=== PATIENT | female | born 1950 | race Caucasian/White ===

== ENCOUNTER 2016-11-15 15:43 | Emergency (ER) | payer OTHER, MEDICARE ==
[2016-11-15 16:00] VITALS: BP 126/103; PULSE 112; TEMP 98.6; BMI 36.0
[2016-11-15] MEDS ORDERED: IBUPROFEN 600 MG TABLET (FP) PO ONE ×2 (16:19→16:25)
--- NOTE | 2016-11-15 16:43 | PDOC ---
History of Present Illness - General Chief Complaint: Injury Stated Complaint: FALL Time Seen by Provider: 11/15/16 16:00 History Source: Patient Exam Limitations: No Limitations - History of Present Illness Initial Comments: 11/15/16 16:38 65 yr female states she stepped off on uneven concrete in a store and fell injured right elbow and left hip. abrasion to the left forearm. no LOC no head trauma. Pt is ambulatory. Occurred: reports: just prior to arrival Past History - Past Medical History Allergies/Adverse Reactions: Allergies Allergy/AdvReac Type Severity Reaction Status Date / Time Penicillins Allergy Intermediate Swelling Verified 11/15/16 15:55 Home Medications: Ambulatory Orders Bupropion HCl [Wellbutrin -] 75 mg PO DAILY 11/15/16 Lorazepam [Ativan] 1 mg PO ASDIR 11/15/16 Zolpidem Tartrate [Ambien] 5 mg PO HS 11/15/16 Psychiatric Problems: Yes (depression, anxiety) - Psycho/Social/Smoking Cessation Hx Suicidal Ideation: No Smoking History: Former smoker Have you smoked in the past 12 months: No Information on smoking cessation initiated: No Trauma Specific PMHX - Complaint Specific PMHX Arthritis: No Back Injury: No Neck Injury: No Hx Sacro Iliac Joint Dysfunction: No Review of Systems - Review of Systems Able to Perform ROS?: Yes Is the patient limited Bahamian proficient: No Constitutional: No: Symptoms Reported HEENTM: No: Symptoms Reported Respiratory: No: Symptoms reported Cardiac (ROS): No: Symptoms Reported ABD/GI: No: Symptoms Reported : No: Symptoms Reported Musculoskeletal: Yes: Symptoms Reported, See HPI Integumentary: Yes: Symptoms Reported, Other (abrasion left forearm ) *Physical Exam - Vital Signs Last Vital Signs Temp Pulse Resp BP Pulse Ox 98.6 F 112 H 17 126/103 95 11/15/16 15:55 11/15/16 15:55 11/15/16 15:55 11/15/16 15:55 11/15/16 15:55 - Physical Exam General Appearance: Yes: Nourished, Appropriately Dressed HEENT: positive: EOMI, LILLY, Normal ENT Inspection, TMs Normal, Pharynx Normal Neck: positive: Supple. negative: Tender Respiratory/Chest: positive: Lungs Clear, Normal Breath Sounds Cardiovascular: positive: Regular Rhythm, Regular Rate Gastrointestinal/Abdominal: positive: Normal Bowel Sounds, Soft Musculoskeletal: positive: Normal Inspection Extremity: positive: Normal Capillary Refill, Tender (right elbow no bony tenderness, FROM pain with extension, left hip no tenderness, FROM nv intact, pt has pain to the left hip with flexion of the hip, ) Integumentary: positive: Normal Color, Dry, Warm, Other (abrasion left forearm ) Neurologic: positive: Fully Oriented, Alert, Normal Mood/Affect, Normal Response , Motor Strength 08/30 ED Treatment Course - RADIOLOGY Radiology Studies Ordered: Category Date Time Status ELBOW-RIGHT [RAD] Stat Radiology 11/15/16 16:19 Ordered HIP-LEFT [RAD] Stat Radiology 11/15/16 16:19 Ordered - Medications Given in the ED: ED Medications Discontinued Medications Generic Name Dose Route Start Last Admin Trade Name Compa PRN Reason Stop Dose Admin Ibuprofen 600 mg 11/15/16 16:19 11/15/16 16:26 Motrin - PO 11/15/16 16:20 600 mg ONCE ONE Administration Medical Decision Making - Medical Decision Making 11/15/16 16:43 cc: trip and fall on uneven floor and fell injured right elbow and left hip pt is ambulatory no acute distress will xray to r/o fracture abrasion to be cleaned tetanus is UTD 11/15/16 16:53 preliminary reading is negative of the xrays, I have discussed that the radiologist will read the xray in 24hrs and we will notify her if any changes. pt understands and is agreance to use the sling as directed. 11/15/16 22:13 *DC/Admit/Observation/Transfer Diagnosis at time of Disposition: Contusion Qualifiers: Encounter type: initial encounter Contusion area: elbow Laterality: right Qualified Code(s): S50.01XA - Contusion of right elbow, initial encounter Abrasion forearm Qualifiers: Encounter type: initial encounter Laterality: left Qualified Code(s): S50.812A - Abrasion of left forearm, initial encounter - Discharge Dispostion Disposition: HOME Condition at time of disposition: Good - Referrals Referrals: Rinku Abdullahi MD [Primary Care Provider] - Ramon Alcaraz MD [Staff Physician] - - Patient Instructions Additional Instructions: apply ice every 2hrs for 20 minutes to areas of pain take motrin 600-800mg every 6hrs for pain follow with your doctor if any worsening pain - Post Discharge Activity
[2016-11-15] MEDS ORDERED: BACITRACIN 15 GM TUBE TOPICAL OINTMENT TP ONE (16:53)
== END 2016-11-15 17:34 | disposition home or self-care (01) ==
LOC: JERFT 15:43
DX: S50.01XA Contusion of right elbow, initial encounter (principal); S50.812A Abrasion of left forearm, initial encounter; Z87.891 Personal history of nicotine dependence; W19.XXXA Unspecified fall, initial encounter; Y93.89 Activity, other specified; Y92.480 Sidewalk as the place of occurrence of the external cause; F41.8 Other specified anxiety disorders
CPT/HCPCS: 73070-TC-RT; 73502-TC-LT; 99282-25

== ENCOUNTER 2017-01-29 15:07 | Emergency (ER) | payer OTHER, MEDICARE ==
[2017-01-29 15:30] VITALS: BP 155/89; PULSE 100; TEMP 97.9; BMI 34.3
[2017-01-29] MEDS ORDERED: ONDANSETRON *ODT* 4 MG TABLET SL ONE (15:50)
[2017-01-29] MEDS ORDERED: KETOROLAC TROMETHAMINE 60 MG/2 ML VIAL IM ONE (15:50)
--- NOTE | 2017-01-29 16:09 | PDOC ---
History of Present Illness - General Chief Complaint: Injury Stated Complaint: SWOLLEN RT WRIST Time Seen by Provider: 01/29/17 15:39 - History of Present Illness Initial Comments: 01/29/17 15:56 CHIEF COMPLAINT: wrist pain HISTORY OF PRESENT ILLNESS: 66 yo F with hx of depression [facility] with R wrist pain s/p fall. Patient reports that she was seen three months ago by orthopedics for similar pain and was told that her swelling "was due to scar tissue." Patient states that yesterday she was walking up a ramp "and pulling myself up like you do when you go up a ramp" and she felt "something snap" and she fell down due to the pain, landing on the same wrist. PAST MEDICAL HISTORY: depression FAMILY HISTORY: Denies SOCIAL HISTORY: enies tobacco, alcohol, illicit drug use. SURGICAL HISTORY: Denies ALLERGIES: No known drug allergies REVIEW OF SYSTEMS General/Constitutional: Denies fever or chills. Denies weakness, weight change. HEENT: Denies change in vision. Denies ear pain or discharge. Denies sore throat. Cardiovascular: Denies chest pain. Gastrointestinal: "I'm a little nauseous from the pain right now." Musculoskeletal: R wrist pain PHYSICAL EXAM General Appearance: Well-appearing, appropriately dressed. No apparent distress. HEENT: EOMI, PERRLA. No conjunctival pallor. No photophobia, scleral icterus. Respiratory/Chest: Lungs CTAB. Cardiovascular: RRR. S1, S2. Gastrointestinal/Abdominal: Normal bowel sounds. Abdomen soft, non-distended. No tenderness or rebound tenderness. No organomegaly, pulsatile mass, guarding , hernia, hepatomegaly, splenomegaly. Musculoskeletal/Extremities: Mild swelling with ecchymosis to dorsal aspect of R wrist. Limited flexion due to pain. Normal inspection. FROM of all extremities, normal capillary refill. No tenderness to extremities, pedal edema , swelling, erythema or deformity. Integumentary: Appropriate color, dry, warm. No cyanosis, erythema, jaundice or rash Neurologic: transfer worker II-XII intact. Fully oriented, alert. Appropriate mood/affect. Motor strength 5/5. No appreciable EOM palsy, facial droop or sensory deficit. 01/29/17 16:44 Past History - Past Medical History Allergies/Adverse Reactions: Allergies Allergy/AdvReac Type Severity Reaction Status Date / Time Penicillins Allergy Intermediate Swelling Verified 01/29/17 15:25 Home Medications: Ambulatory Orders Bupropion HCl [Wellbutrin -] 75 mg PO DAILY 11/15/16 Lorazepam [Ativan] 1 mg PO ASDIR 11/15/16 Zolpidem Tartrate [Ambien] 5 mg PO HS 11/15/16 Diclofenac Sodium 75 mg PO BID #10 tablet. 01/29/17 Psychiatric Problems: Yes (depression, anxiety) - Immunization History Immunization Up to Date: Yes - Suicide/Smoking/Psychosocial Hx Smoking History: Former smoker Have you smoked in the past 12 months: No If you are a former smoker, when did you quit?: 1996 Information on smoking cessation initiated: No Hx Alcohol Use: No Drug/Substance Use Hx: No Trauma Specific PMHX - Complaint Specific PMHX Arthritis: No Back Injury: No Neck Injury: No Hx Sacro Iliac Joint Dysfunction: No *Physical Exam - Vital Signs Last Vital Signs Temp Pulse Resp BP Pulse Ox 97.9 F 100 H 20 155/89 97 01/29/17 15:25 01/29/17 15:25 01/29/17 15:25 01/29/17 15:25 01/29/17 15:25 ED Treatment Course - RADIOLOGY Radiology Studies Ordered: Category Date Time Status WRIST W/HAND-RIGHT* [RAD] Stat Radiology 01/29/17 15:50 Ordered Medical Decision Making - Medical Decision Making 01/29/17 16:09 66 yo F with hx of depression [facility] with R wrist pain s/p fall. -X-ray r/o fracture/dislocation -Zofran -Toradol 01/29/17 16:44 X-ray positive for nondisplaced fracture. Dorsal/volar splint applied. *DC/Admit/Observation/Transfer Diagnosis at time of Disposition: Wrist fracture, left Qualifiers: Encounter type: initial encounter Fracture type: closed Qualified Code(s): S62.102A - Fracture of unspecified carpal bone, left wrist, initial encounter for closed fracture; S62.102A - Fracture of unspecified carpal bone, left wrist , initial encounter for closed fracture - Discharge Dispostion Disposition: HOME Condition at time of disposition: Stable Admit: No - Prescriptions Prescriptions: Diclofenac Sodium 75 mg PO BID #10 tablet. - Referrals Referrals: Rinku Abdullahi MD [Primary Care Provider] - Lenny Beaulieu MD [Staff Physician] - - Patient Instructions Printed Discharge Instructions: DI for Wrist Fracture Additional Instructions: Please take medication as prescribed. Follow up with orthopedics within the next 1-2 days. If you develop any loss of sensation, decreased temperature, or change in color to your fingers, or you develop increased swelling to your wrist , or any new or worsening symptoms, please return to the ER.
== END 2017-01-29 16:51 | disposition home or self-care (01) ==
LOC: JERFT 15:07
PROC: 2W3CX1Z Immobilization of Right Lower Arm using Splint (ICD-10-PCS; principal; 2017-01-29)
PROC: 3E0233Z Introduction of Anti-inflammatory into Muscle, Percutaneous Approach (ICD-10-PCS; 2017-01-29)
DX: S52.591A Other fractures of lower end of right radius, initial encounter for closed fracture (principal); W10.2XXA Fall (on)(from) incline, initial encounter; Y93.01 Activity, walking, marching and hiking; Y92.89 Other specified places as the place of occurrence of the external cause; F32.9 Major depressive disorder, single episode, unspecified
CPT/HCPCS: 29125; 73110-TC-RT; 73130-TC-RT; 96372; 99282-25